=== PATIENT | male | born 1990 | race Caucasian/White ===

== ENCOUNTER 2022-09-15 14:09 | Emergency (ER) | payer OTHER ==
[~2022-09-15] VITALS: Ht 185.4 cm; Wt 102.5 kg
[2022-09-15 14:49] LABS: CLARITY URINE CLOUDY (CLEAR); COLOR URINE YELLOW (YELLOW); KETONES URINE NEGATIVE (NEGATIVE); LEUKOCYTE ESTERASE URINE NEGATIVE (NEGATIVE); NITRITE URINE NEGATIVE (NEGATIVE); OCCULT BLOOD URINE TRACE (NEGATIVE); PROTEIN URINE 2+ (NEGATIVE); SPECIFIC GRAVITY URINE 1.023 (1.005-1.030); UROBILINOGEN URINE 0.2 E.U./dL (0.2-1.0)
[2022-09-15] MEDS ORDERED: ONDANSETRON 4MG ODT PO ONE (15:15)
[2022-09-15 15:30] LABS: *AMPHETAMINES SCREEN URINE PRESUMTIVE POSITIVE (NEGATIVE); *BARBITURATES SCREEN URINE NEGATIVE (NEGATIVE); *BENZODIAZEPINES SCREEN URINE PRESUMTIVE POSITIVE (NEGATIVE); *COCAINE SCREEN URINE PRESUMTIVE POSITIVE (NEGATIVE); CANNABINOID URINE SCREEN NEGATIVE (NEGATIVE); METHADONE URINE SCREEN NEGATIVE (NEGATIVE); OPIATES URINE SCREEN NEGATIVE (NEGATIVE); PHENCYCLIDINE URINE SCREEN NEGATIVE (NEGATIVE)
[2022-09-15 15:42] LABS: HEMATOCRIT. 49.8 % (42.0-52.0); HEMOGLOBIN. 16.4 g/dL (14.0-18.0); MEAN CORPUSCULAR VOLUME 88.3 fL (80.0-94.0); MEAN PLATELET VOLUME 7.8 fl (7.4-10.4); PLATELET 374 x1000/uL (130-400); RED BLOOD CELL COUNT 5.64 mill/uL (4.7-6.1); RED CELL DISTRIBUTION WIDTH 13.7 % (11.6-14.6)
[2022-09-15 15:46] LABS: CHLORIDE 100 mEq/L (98-107)
[2022-09-15 15:53] LABS: CREATINE KINASE 311 IU/L (39-308); ETHANOL BLOOD < 10 mg/dL
[2022-09-15 16:17] VITALS: BP 120/61
[2022-09-15] MEDS ORDERED: ONDANSETRON HCL 4MG/2ML INJ IV STA (16:33)
[2022-09-15] MEDS ORDERED: SODIUM CHLORIDE 0.9% 1,000 ML IV ONE (16:45)
[2022-09-15 18:44] LABS: PLATELET ESTIMATE NORMAL
[2022-09-15] MEDS ORDERED: ONDANSETRON HCL 4MG/2ML INJ IV ONE (19:00)
[2022-09-15] MEDS ORDERED: ONDA4TAB50 MT (19:03)
[2022-09-15] MEDS ORDERED: NALO4SPR BOTHNSTRLS (19:03)
[2022-09-15] MEDS ORDERED: AMOX1TAB16 MT (19:03)
== END 2022-09-15 19:25 | disposition home or self-care (01) ==
LOC: ER 14:09
DX: T50.7X1A Poisoning by analeptics and opioid receptor antagonists, accidental (unintentional), initial encounter (principal); Y92.89 Other specified places as the place of occurrence of the external cause; J18.9 Pneumonia, unspecified organism; R53.1 Weakness; R42 Dizziness and giddiness
CPT/HCPCS: 36415; 71045; 80053; 80305; 80307; 80320; 80329; 81003; 82550; 85025; 87086; 96361; 96374; 96376; 99284; J2405; J7030; Q0162; Z7610; G0480